=== PATIENT | male | born 1995 | race Asian ===

== ENCOUNTER 2022-04-05 12:22 | Emergency (ER) | payer OTHER ==
[~2022-04-05] VITALS: Ht 177.8 cm; Wt 83.9 kg
[2022-04-05 13:15] LABS: HEMATOCRIT 43.2 % (42.0-52.0); MEAN CORPUSCULAR HEMOGLOBIN 30.6 pg (27.0-33.0); MEAN CORPUSCULAR HGB CONC 32.4 g/dl (32.0-36.5); MEAN CORPUSCULAR VOLUME 94.3 fl (80.0-96.0); PLATELET COUNT, AUTOMATED 266 10^3/uL (150-450); RED BLOOD COUNT 4.58 10^6/uL (4.30-6.10); WHITE BLOOD COUNT 3.6 10^3/uL (4.0-10.0)
[2022-04-05 13:34] LABS: ETHYL ALCOHOL (ETHANOL) 0.003 % (0.000-0.010)
[2022-04-05 13:35] LABS: ACETAMINOPHEN LEVEL < 2.0 UG/ML (10.0-20.0)
[2022-04-05 13:36] LABS: SALICYLATE LEVEL < 3.0 MG/DL (<30)
[2022-04-05 13:39] LABS: ALBUMIN 3.7 G/DL (3.2-5.2); ALKALINE PHOSPHATASE 68 U/L (46-116); ALT/SGPT 58 U/L (7.0-40); AST/SGOT 78 U/L (<34); BILIRUBIN,DIRECT 0.1 MG/DL (<0.4); BILIRUBIN,TOTAL 0.4 MG/DL (0.3-1.2); BLOOD UREA NITROGEN 24 MG/DL (9-23); CALCIUM LEVEL 8.8 MG/DL (8.5-10.1); CARBON DIOXIDE LEVEL 28 MMOL/L (20-31); CHLORIDE LEVEL 103 MMOL/L (98-107); CREATININE FOR GFR 0.81 MG/DL (0.70-1.30); GLOMERULAR FILTRATION RATE > 60.0 (>60); GLUCOSE, FASTING 98 MG/DL (60-100); POTASSIUM SERUM 4.3 MMOL/L (3.5-5.1); SODIUM LEVEL 138 MMOL/L (136-145); THYROID STIMULATING HORMONE 2.138 uIU/ML (0.55-4.78); TOTAL PROTEIN 7.3 G/DL (5.7-8.2)
[2022-04-05 13:44] LABS: AMPHETAMINES LEVEL URINE NEGATIVE (NEGATIVE); BARBITURATES URINE NEGATIVE (NEGATIVE); BENZODIAZEPINES URINE NEGATIVE (NEGATIVE); COCAINE METABOLITE URINE NEGATIVE (NEGATIVE); METHADONE URINE NEGATIVE (NEGATIVE); OPIATES URINE NEGATIVE (NEGATIVE)
[2022-04-05 13:45] LABS: CANNABINOIDS URINE NEGATIVE (NEGATIVE); PHENCYCLIDINE URINE NEGATIVE (NEGATIVE)
[2022-04-05] MEDS ORDERED: HYDR-3363 PO ×2 (14:32)
[2022-04-05] MEDS ORDERED: CENT1TAB2 PO (14:32)
[2022-04-05] MEDS ORDERED: HOME MED LIST COMPLETE! XX SCH (14:45)
[2022-04-06 03:53] VITALS: BP 119/70
== END 2022-04-06 04:11 ==
LOC: M ED 12:22
DX: R45.851 Suicidal ideations (principal); F32.A Depression, unspecified; F41.9 Anxiety disorder, unspecified; I49.49 Other premature depolarization; Z79.810 Long term (current) use of selective estrogen receptor modulators (SERMs); Z79.811 Long term (current) use of aromatase inhibitors

== ENCOUNTER 2023-11-07 08:35 | Day surgery (SDC) | payer OTHER ==
[~2023-11-07] VITALS: Ht 177.8 cm; Wt 86.5 kg
[~2023-11-07 08:35] MED LIST: BUSP10TA PO; CENT1TAB2 PO; DESC1TAB PO; HYDR-3363 PO; IBUP200C29 PO; LIDOCAINE W/EPINEPHRINE 1% 20ML VIAL XX ONE; MIRT1TAB16 PO; SODIUM BICARBONATE 8.4% INJ 50MEQ 50ML VIAL XX ONE; TEST200I14 IM; [UNRECOGNIZED DRUG - CODE] PO
[2023-11-07] MEDS: BACITRACIN OINTMENT 30GM TUBE As Ordered ONE (11:12)
[2023-11-07 11:17] VITALS: BP 136/68; TEMP 97.3; O2SAT 99
== END 2023-11-07 11:35 | disposition home or self-care (01) ==
LOC: M SDC 08:35
PROVIDERS: ATTEND Orthopaedic Surgery Hand Surgery
DX: M65.4 Radial styloid tenosynovitis [de Quervain] (principal); F41.9 Anxiety disorder, unspecified; F32.A Depression, unspecified

== ENCOUNTER → 2024-04-24 | Outpatient (CLI) | payer OTHER ==
[~2024-04-24] MED LIST changes: -LIDOCAINE W/EPINEPHRINE 1% 20ML VIAL XX ONE; -SODIUM BICARBONATE 8.4% INJ 50MEQ 50ML VIAL XX ONE
== END ==
LOC: M RAD 16:33
PROVIDERS: ATTEND Orthopaedic Surgery Hand Surgery
DX: Z47.89 Encounter for other orthopedic aftercare (principal); M25.641 Stiffness of right hand, not elsewhere classified; M65.4 Radial styloid tenosynovitis [de Quervain]